=== PATIENT | male | born 1980 | race Hispanic/Latino ===

== ENCOUNTER 2018-03-29 17:48 | Emergency (ER) | payer BC, SELFPAY ==
[2018-03-29 17:51] VITALS: BP 141/83; PULSE 50; RESP 17; TEMP 37.4; O2SAT 99; BMI 26.6
--- NOTE | 2018-03-29 18:24 | EKG12_ITS ---
Test Reason : IRREGULAR HEARTBEAT Blood Pressure : / mmHG Vent. Rate : 102 BPM Atrial Rate : 102 BPM P-R Int : 130 ms QRS Dur : 100 ms QT Int : 366 ms P-R-T Axes : 062 022 072 degrees QTc Int : 477 ms Sinus tachycardia with frequent Premature ventricular complexes Otherwise normal ECG Confirmed by PATRICK KOWALSKI, EDIS ([id number]), film and video editor ALFRED REHMAN ([id number] on 04/01/2018 3:16:03 PM Referred By: Confirmed By:EDIS NGUYEN MD
--- NOTE | 2018-03-29 18:26 | RAD_ITS ---
STUDY: X-RAY CHEST REASON FOR EXAM: Male, 37 years old. Palpitations TECHNIQUE: Single AP portable view of the chest. COMPARISON: None. FINDINGS: The lungs are clear and expanded. There is no demonstrated pleural abnormality. Normal size heart. Normal mediastinum and raegan. Normal visualized pulmonary arteries. Normal visualized aortic arch and descending thoracic aorta. Normal visualized thoracic spine. Normal visualized ribs, clavicles, and shoulders. There is no demonstrated abnormality of the visualized soft tissue structures of the upper abdomen. RAD/Chest 1 View (Portable) IMPRESSION: Normal x-ray examination of the chest. Electronically Signed: Matthew Diaz DO at 18:37 EDT Tel , Service support ,
--- NOTE | 2018-03-29 18:30 | ED.VISSUMM ---
- ER Visit Summary Date of Service: 03/29/18 Chief Complaint: Irregular heartbeat History of Present Illness: The patient is a 37 M presenting from [facility] due to irregular heartbeat. Patient went to [facility] because he has had a sore throat since Sunday. He was tested for strep which was positive. He is given prescription for amoxicillin. He was noted to have an irregular heartbeat on exam. Patient denies palpitations, chest pain, shortness of breath. He denies lightheadedness or syncope. Denies other complaints. Physical Examination: Vitals are stable. Patient is afebrile. Alert no acute distress. HEENT exam pharyngeal erythema, uvula midline. Neck is supple. Lungs are clear and equal bilaterally. Heart is regular rate and rhythm. Abdomen is soft nontender nondistended. Extremities are unremarkable. Skin is warm and dry. No focal neurologic deficit. Remainder of exam is unremarkable. Emergency Department Course and Treatment: EKG is sinus with frequent PVCs, occasional runs of bigeminy. CBC, chemistries unremarkable. Magnesium 1.8, TSH 1.86. Troponin is negative. Chest x-ray shows no acute process. Patient remains asymptomatic in the ED. Discussed with Dr. Hopkins. Patient will follow-up as an outpatient. Advised return to ED for worsening complaints. Disposition: Discharge home Impression: Strep pharyngitis, frequent PVCs This note was generated with [employer] dictation software. It may contain incorrect words, spelling, and punctuation that were not noted in review of the chart prior to signing ED Disposition - Plan for ED Patient: Chief Complaint: Palpitations Instructions: Premature Ventricular Contractions Referrals: Thiago Faustin MD [Primary Care Provider] - Chriss Hopkins MD [STAFF PHYSICIAN] -
--- NOTE | 2018-03-29 18:33 | ED.DCSUM_ITS ---
- ER Visit Summary Date of Service: 03/29/18 Chief Complaint: Irregular heartbeat History of Present Illness: The patient is a 37 M presenting from [facility] due to irregular heartbeat. Patient went to [facility] because he has had a sore throat since Sunday. He was tested for strep which was positive. He is given prescription for amoxicillin. He was noted to have an irregular heartbeat on exam. Patient denies palpitations, chest pain, shortness of breath. He denies lightheadedness or syncope. Denies other complaints. Physical Examination: Vitals are stable. Patient is afebrile. Alert no acute distress. HEENT exam pharyngeal erythema, uvula midline. Neck is supple. Lungs are clear and equal bilaterally. Heart is regular rate and rhythm. Abdomen is soft nontender nondistended. Extremities are unremarkable. Skin is warm and dry. No focal neurologic deficit. Remainder of exam is unremarkable. Emergency Department Course and Treatment: EKG is sinus with frequent PVCs, occasional runs of bigeminy. CBC, chemistries unremarkable. Magnesium 1.8, TSH 1.86. Troponin is negative. Chest x-ray shows no acute process. Patient remains asymptomatic in the ED. Discussed with Dr. Hopkins. Patient will follow- up as an outpatient. Advised return to ED for worsening complaints. Disposition: Discharge home Impression: Strep pharyngitis, frequent PVCs This note was generated with [employer] dictation software. It may contain incorrect words, spelling, and punctuation that were not noted in review of the chart prior to signing ED Disposition - Plan for ED Patient: Chief Complaint: Palpitations Instructions: Premature Ventricular Contractions Referrals: Thiago Faustin MD [Primary Care Provider] - Chriss Hopkins MD [STAFF PHYSICIAN] -
[2018-03-29] MEDS: Aspirin 81 MG TAB.CHEW 324 MG PO (18:37)
[2018-03-29 18:48] LABS: Absolute Lymphocyte Count 1.09 X10^3/ul (0.83-4.51); Absolute Neutrophil Count 4.8 X10^3/uL (2.0-7.7); Basophil# 0.02 X10^3/uL; Basophil% 0.3 % (0-1); Eosinophil# 0.07 X10^3/uL; Eosinophils% 1.1 % (0-5); Hematocrit 41.4 % (40-54); Hemoglobin 13.7 g/dl (13.0-16.5); Lymphocyte # 1.09 X10^3/ul (4.0); Mean Corp Hgb Conc 33.1 g/gl (32-36); Mean Corpuscular Hgb 27.8 pg (27.0-32.0); Mean Corpuscular Volume 84.1 fL (80-94); Mean Platelet Vol. 11.6 fl (6.2-12.0); Monocyte# 0.41 X10^3/uL; Monocyte% 6.4 % (0-10); Neutrophil # 4.82 X10^3/uL (2.7-7.7); Neutrophil % 75.2 % (47-70); POSITIVE COUNT NO; POSITIVE DIFFERENTIAL NO; POSITIVE MORPHOLOGY NO; Platelet Count 160 K/mm3 (150-450); RBC Distribution Width CV 12.8 % (11.6-14.6); RBC Distribution Width SD 38.9 fl (35.1-43.9); Red Blood Count 4.92 M/mm3 (4.6-6.2); White Blood Count 6.4 K/mm3 (4.4-11.0)
[2018-03-29 19:10] LABS: Anion Gap 5 (5-15); BUN 19 mg/dL (7-18); BUN/Creat Ratio 17.4 RATIO (10-20); Calcium,Total 8.4 mg/dL (8.5-10.1); Chloride 110 mmol/L (98-107); Creatinine, Serum 1.09 mg/dL (0.70-1.30); EST Glomerular Filtration Rate 80 mL/min (>60); Est Glom Filt Rate - Afr Amer 97 mL/min (>60); Estimated Creatinine Clearance 97.87 ml/min; Glucose 85 mg/dL (74-106); Magnesium 1.8 mg/dL (1.6-2.6); Potassium 4.4 mmol/L (3.5-5.1); Sodium Level 142 mmol/L (136-145); Thyroid Stim Hormone (TSH) 1.86 uIU/mL (0.358-3.74)
--- NOTE | 2018-03-29 19:28 | ED.DEP ---
ED Disposition - Plan for ED Patient: Chief Complaint: Palpitations Instructions: Premature Ventricular Contractions Referrals: Thiago Faustin MD [Primary Care Provider] - Chriss Hopkins MD [STAFF PHYSICIAN] -
[2018-03-29 19:40] VITALS: PULSE 101; RESP 18; O2SAT 98
== END 2018-03-29 19:41 | disposition home or self-care (01) ==
LOC: ED 18:58
PROVIDERS: Emergency Provider Emergency Medicine; Family Provider Family Medicine; PCP Family Medicine
DX: I49.3 Ventricular premature depolarization (principal); J02.0 Streptococcal pharyngitis
CPT/HCPCS: 71045; 80048; 83735; 84443; 84484; 85025; 93005; 99285; A4216

== ENCOUNTER 2018-04-18 20:40 | Emergency (ER) | payer BC, SELFPAY ==
[2018-04-17 15:14] VITALS: BMI 26.4
[2018-04-18 20:42] VITALS: BP 151/74; PULSE 88; RESP 20; TEMP 37.4; O2SAT 98; BMI 26.6
--- NOTE | 2018-04-18 22:32 | ED.VISSUMM ---
- ER Visit Summary Date of Service: 04/18/18 Chief Complaint: Patient presents with sore throat that started yesterday History of Present Illness: The patient is a 37 M who presents with sore throat that started yesterday. He denies fever, chills or sweats. He denies rhinorrhea, postnasal drainage or cough. He was diagnosed 3 weeks ago with strep. He denies change in his voice. Eyes inability to swallow solids or liquids. He denies any respiratory symptoms. He denies rash. Denies myalgias arthralgias. Physical Examination: Vital signs are noted. HEENT exam is remarkable for exudative tonsillitis. Uvula is midline. Nares patent without discharge. TMs are normal. Ocular exam is normal. Trach is midline without stridor. There is bilateral anterior cervical lymphadenopathy. Heart is regular without murmur, gallop or rub. Lungs are clear to auscultation. No rashes noted. Test Results: Rapid strep test is positive. Emergency Department Course and Treatment: Rapid strep was positive. Since rapid strep was positive treated with Pen-Vee K Treatment Plan: Prescription for Pen-Vee K Disposition: Discharged home in stable condition Impression: Exudative tonsillitis This note was generated with [employer] dictation software. It may contain incorrect words, spelling, and punctuation that were not noted in review of the chart prior to signing ED Disposition - Plan for ED Patient: Disposition: Home or Assisted Living Chief Complaint: Sore Throat Instructions: ED Strep Pharyngitis Conf Prescriptions: Penicillin V Potassium 500 mg PO 4X/DAY #40 tablet Referrals: Thiago Faustin MD [Primary Care Provider] - 1 Week if not improving Additional Instructions: Your prescription was electronically transmitted to [facility] and should be ready for you tomorrow morning.
--- NOTE | 2018-04-18 22:35 | ED.DCSUM_ITS ---
- ER Visit Summary Date of Service: 04/18/18 Chief Complaint: Patient presents with sore throat that started yesterday History of Present Illness: The patient is a 37 M who presents with sore throat that started yesterday. He denies fever, chills or sweats. He denies rhinorrhea, postnasal drainage or cough. He was diagnosed 3 weeks ago with strep. He denies change in his voice. Eyes inability to swallow solids or liquids. He denies any respiratory symptoms. He denies rash. Denies myalgias arthralgias. Physical Examination: Vital signs are noted. HEENT exam is remarkable for exudative tonsillitis. Uvula is midline. Nares patent without discharge. TMs are normal. Ocular exam is normal. Trach is midline without stridor. There is bilateral anterior cervical lymphadenopathy. Heart is regular without murmur, gallop or rub. Lungs are clear to auscultation. No rashes noted. Test Results: Rapid strep test is positive. Emergency Department Course and Treatment: Rapid strep was positive. Since rapi d strep was positive treated with Pen-Vee K Treatment Plan: Prescription for Pen-Vee K Disposition: Discharged home in stable condition Impression: Exudative tonsillitis This note was generated with [employer] dictation software. It may contain incorrect words, spelling, and punctuation that were not noted in review of the chart prio r to signing ED Disposition - Plan for ED Patient: Disposition: Home or Assisted Living Chief Complaint: Sore Throat Instructions: ED Strep Pharyngitis Conf Prescriptions: Penicillin V Potassium 500 mg PO 4X/DAY #40 tablet Referrals: Thiago Faustin MD [Primary Care Provider] - 1 Week if not improving Additional Instructions: Your prescription was electronically transmitted to [facility] and should be ready for you tomorrow morning.
[2018-04-18] MEDS: Penicillin Vk 250 MG Tablet 500 MG PO (22:42)
== END 2018-04-18 22:45 | disposition home or self-care (01) ==
PROVIDERS: Emergency Provider Emergency Medicine; Family Provider Family Medicine; PCP Family Medicine
DX: J03.90 Acute tonsillitis, unspecified (principal)
CPT/HCPCS: 87880; 99283

== ENCOUNTER → 2018-04-26 12:59 | Outpatient (CLI) | payer BC, SELFPAY ==
[2018-04-17 15:14] VITALS: BMI 26.4
[2018-04-18 20:42] VITALS: BMI 26.6
--- NOTE | 2018-04-26 13:02 | ECHOD_ITS ---
Reason For Study: Arrhythmia Procedure This was a 2D Doppler, Color Flow transthoracic echocardiogram. Exam performed in department. Left Ventricle Normal LV size. Left ventricular systolic function is normal. The estimated ejection fraction is 55 %. Normal diastology for age. No regional wall motion abnormalities noted. Right Ventricle Normal RV size. Normal systolic function. Atria Normal left atrium. Normal right atrium. Mitral Valve Mild mitral valve prolapse. Tricuspid Valve Normal tricuspid valve. Mild (1+) tricuspid valve insufficiency. Pulmonary artery systolic pressure is 31 mmHg. Aortic Valve Normal aortic valve. Trisinus/trileaflet aortic valve. Pulmonic Valve Normal pulmonic valve. Great Vessels Normal aortic root. The pulmonary artery is normal size. Normal inferior vena cava. Pericardium/Pleural No pericardial effusion. MMode/2D Measurements & Calculations LVIDd: 5.0 cm IVSd: 0.97 cm LA dimension: 3.4 cm LVIDs: 2.8 cm LVPWd: 0.82 cm RVDd: 3.6 cm FS: 43.4 % LAV(MOD-bp): 30.0 ml LVAd ap4: 29.0 cm2 SV(MOD-sp4): 57.4 ml LAV(MOD-bp) Indexed: 14.7 ml/m2 EDV(MOD-sp4): 80.3 ml LAV(MOD-sp2): 31.7 ml EDV(sp4-el): 80.9 ml LAV(MOD-sp4): 26.2 ml LVAs ap4: 13.3 cm2 ESV(MOD-sp4): 22.9 ml ESV(sp4-el): 22.4 ml EF(MOD-sp4): 71.5 % EF(sp4-el): 72.3 % SV(sp4-el): 58.5 ml LA A4 area: 12.9 cm2 RA A4 area: 14.2 cm2 Doppler Measurements & Calculations MV E max santiago: 81.9 cm/sec Lat Peak E' Santiago: 14.1 cm/sec Med Peak E' Santiago: 8.8 cm/sec MV A max santiago: 60.5 cm/sec E/E' lat: 5.8 E/E' med: 9.3 MV E/A: 1.4 Ao V2 max: 160.7 cm/sec LV V1 max: 157.0 cm/sec PA V2 max: 113.6 cm/sec Ao max P.3 mmHg LV V1 max P.9 mmHg Ao V2 mean: 105.4 cm/sec Ao mean P.1 mmHg Ao V2 VTI: 28.9 cm TR max santiago: 259.4 cm/sec TR max P.9 mmHg Interpretation Summary Normal LV size. Left ventricular systolic function is normal. The estimated ejection fraction is 55 %. Normal diastology for age. Mild mitral valve prolapse. Mild (1+) tricuspid valve insufficiency. Ordering Physician: Chriss Hopkins Referring Physician: Manpreet Faustin Performed By: Constance Shipman, ORD, RVT
--- OUTSIDE RECORDS SUMMARY | 2018-06-21 11:56 | XMS RPT_ITS ---
:1980 Author Organization OHIP Care Team Providers Name Role Phone MIGUELINA GARDINER (HARVEY) Attending Unavailable MIGUELINA GARDINER (HARVEY) Referring Unavailable Jenny Jordan Attending Unavailable Bursley, Thiago Primary Care Unavailable Deb Chun Attending Unavailable Kellie, [place] Attending Unavailable Bursley, Thiago Referring Unavailable Bursley, Thiago Primary Care Unavailable Paz, Celso Attending Unavailable Kellie, [place] Attending Unavailable Kellie, [place] Referring Unavailable Bursley, Thiago Primary Care Unavailable Kellie, [place] Attending Unavailable Kellie, Chriss Referring Unavailable Bursley, Thiago Primary Care Unavailable Kellie, Chriss Consulting Unavailable Johnnie Shipman Attending Unavailable Bursley, Thiago Referring Unavailable PROBLEMS PROBLEMS DATE TYPE CONDITION / CODE ATTENDING STATUS SOURCE 05/01/2018 Unknown I49.3 - Ventricular RoofJohnnie Active [facility] I49.3(ICD-10) Repository 04/13/2018 Active Encounter for NA Active [facility] without abnormal Repository findings / Z00.00(ICD-10) PROCEDURES PROCEDURES No Procedure Records FoundRESULTS RESULTS ECHOCARDIOGRAM COMPLETE Observed: 04/29/2018 Status: F Source: [place] 7:56 AM [facility] REPOSITORY [facility] Cardiovascular Services [address] [place] [address] Echo Complete 04/26/18 1308 MR#: [id number] Acct: [id number] Name: MARISOL NEVAREZ Rep #: [id number] : 1980 37 From: Chriss Hopkins MD Attending Dr: Chriss Hopkins MD Status: REG CLI Ordering Dr: Chriss Hopkins MD Date: 04/26/18 Location: [facility] Sex: M H Admitted: Reason For Study: Arrhythmia Procedure This was a 2D Doppler, Color Flow transthoracic echocardiogram. Exam performed in department. Left Ventricle Normal LV size. Left ventricular systolic function is normal. The estimated ejection fraction is 55 %. Normal diastology for age. No regional wall motion abnormalities noted. Right Ventricle Normal RV size. Normal systolic function. Atria Normal left atrium. Normal right atrium. Mitral Valve Mild mitral valve prolapse. Tricuspid Valve Normal tricuspid valve. Mild (1+) tricuspid valve insufficiency. Pulmonary artery systolic pressure is 31 mmHg. Aortic Valve Normal aortic valve. Trisinus/trileaflet aortic valve. Pulmonic Valve Normal pulmonic valve. Great Vessels Normal aortic root. The pulmonary artery is normal size. Normal inferior vena cava. Pericardium/Pleural No pericardial effusion. MMode/2D Measurements AND Calculations LVIDd: 5.0 cm IVSd: 0.97 cm LA dimension: 3.4 cm LVIDs: 2.8 cm LVPWd: 0.82 cm RVDd: 3.6 cm FS: 43.4 % LAV(MOD-bp): 30.0 ml LVAd ap4: 29.0 cm2 SV(MOD-sp4): 57.4 ml LAV(MOD-bp) Indexed: 14.7 ml/m2 EDV(MOD-sp4): 80.3 ml LAV(MOD-sp2): 31.7 ml EDV(sp4-el): 80.9 ml LAV(MOD-sp4): 26.2 ml LVAs ap4: 13.3 cm2 ESV(MOD-sp4): 22.9 ml ESV(sp4-el): 22.4 ml EF(MOD-sp4): 71.5 % EF(sp4-el): 72.3 % SV(sp4-el): 58.5 ml LA A4 area: 12.9 cm2 RA A4 area: 14.2 cm2 Doppler Measurements AND Calculations MV E max santiago: 81.9 cm/sec Lat Peak E' Santiago: 14.1 cm/sec Med Peak E' Santiago: 8.8 cm/sec MV A max santiago: 60.5 cm/sec E/E' lat: 5.8 E/E' med: 9.3 MV E/A: 1.4 Ao V2 max: 160.7 cm/sec LV V1 max: 157.0 cm/sec PA V2 max: 113.6 cm/sec Ao max P.3 mmHg LV V1 max P.9 mmHg Ao V2 mean: 105.4 cm/sec Ao mean P.1 mmHg Ao V2 VTI: 28.9 cm TR max santiago: 259.4 cm/sec TR max P.9 mmHg Interpretation Summary Normal LV size. Left ventricular systolic function is normal. The estimated ejection fraction is 55 %. Normal diastology for age. Mild mitral valve prolapse. Mild (1+) tricuspid valve insufficiency. Ordering Physician: Chriss Hopkins Referring Physician: Manpreet Faustin Performed By: Rosemary Shipman RDCS, RVT 04/29/18 0756 Date Chriss Hopkins MD CC: Thiago Faustin MD; Chriss Hopkins MD Date Dictated: 04/26/18 1308 Date Transcribed: 04/29/18 0756 Card Fixer: Signed EMERGENCY DEPARTMENT Observed: 04/18/2018 Status: F Source: [place] SUMMARY 10:35 PM [facility] REPOSITORY [facility] Medical Records Department [address] [place] [address] Emergency Department Summary 04/18/18 2232 MR#: [id number] Acct: [id number] Name: MARISOL NEVAREZ Rep #: [id number] : 1980 37 From: Celso Paz MD PCP: Thiago Faustin MD Status: REG ER - ER Visit Summary Date of Service: 04/18/18 Chief Complaint: Patient presents with sore throat that started yesterday History of Present Illness: The patient is a 37 M who presents with sore throat that started yesterday. He denies fever, chills or sweats. He denies rhinorrhea, postnasal drainage or cough. He was diagnosed 3 weeks ago with strep. He denies change in his voice. Eyes inability to swallow solids or liquids. He denies any respiratory symptoms. He denies rash. Denies myalgias arthralgias. Physical Examination: Vital signs are noted. HEENT exam is remarkable for exudative tonsillitis. Uvula is midline. Nares patent without discharge. TMs are normal. Ocular exam is normal. Trach is midline without stridor. There is bilateral anterior cervical lymphadenopathy. Heart is regular without murmur, gallop or rub. Lungs are clear to auscultation. No rashes noted. Test Results: Rapid strep test is positive. Emergency Department Course and Treatment: Rapid strep was positive. Since rapid strep was positive treated with Pen-Vee K Treatment Plan: Prescription for Pen-Vee K Disposition: Discharged home in stable condition Impression: Exudative tonsillitis This note was generated with Ripl dictation software. It may contain incorrect words, spelling, and punctuation that were not noted in review of the chart prior to signing ED Disposition - Plan for ED Patient: Disposition: Home or Assisted Living Chief Complaint: Sore Throat Instructions: ED Strep Pharyngitis Conf Prescriptions: Penicillin V Potassium 500 mg PO 4X/DAY #40 tablet Referrals: Thiago Faustin MD [Primary Care Provider] - 1 Week if not improving Additional Instructions: Your prescription was electronically transmitted to [facility] and should be ready for you tomorrow morning. What to do if you have Problems For any increased pain, shortness of breath, bleeding, nausea or vomiting, chest pain, or any unexpected problems, contact your Primary Care Provider. Call [facility] ([phone]) or report to the closest Emergency Room. Call 911 if necessary. 04/18/184 <Electronically signed by Celso Paz MD> Date Celso Paz MD Cosigner Signature (If Indicated): Date CC: Thiago Faustin MD Observed: 04/18/2018 Status: C Source: [place] STREP A (THROAT 9:59 PM [facility] RAPID ARELI) REPOSITORY Order Date: 04/18/18 Strep A Rapid Rapid Strep A Screen POSITIVE A Disk (Conf. Cult) Test Not Performed : All NEGATIVE screens will be confirmed with a culture. ORGANISM 1: Streptococcus Group A Performed By: #### [id number] #### [facility] [address] [place], [place], [address] CARDIOLOGY VISIT Observed: 04/17/2018 Status: F Source: [place] REPORT 3:42 PM [facility] REPOSITORY [facility] [address] [place] [address] OFFICE VISIT Date of Service: 04/17/18 MR#: [id number] Acct: [id number] Name: MARISOL NEVAREZ Rep #: [id number] : 1980 Provider: Chriss Hopkins MD Age/Sex: 37/M Location: [facility] Status: Signed [facility] Chief Complaint: Initial visit Details: MARISOL NEVAREZ, is a 37 M who presents to the office today for an initial visit. He developed a sore throat approximately 3 weeks ago and went to the outpatient clinic. He was noted on examination at that time to have an irregular heartbeat and was sent to the emergency room. He was evaluated in the emergency room with an EKG which demonstrated sinus tachycardia with a rate of 102 bpm and frequent premature ventricular complexes. He does confess to drinking a fair amount of coffee and some beer. He has had no dizziness or diaphoresis no near syncope or syncope he does not feel these episodes. His chemistries were unremarkable magnesium was 1.8 TSH was normal. He was referred here to cardiology. His physical exam today demonstrates clear lung leos regular rate and rhythm with frequent irregularities and no pedal edema. The EKG was reviewed and it does demonstrate frequent unifocal premature ventricular complexes which are positive in leads II, III and aVF as well as V5 V6 Intake Vital Signs04/17/18 Height 5 ft 11 in Intake Visit Reasons: ER 11-2 for murmur (NEW to [facility]/[employer] SHE[employer]) Allergies No Known Allergies Allergy (Verified 04/17/18 15:14) Medications NK 03/29/18 [History Confirmed 03/29/18] PFSH Family History Father Myocardial infarction MD age 70 CAD (coronary artery disease) Hypertension Other Malignant hyperthermia due to anesthesia Social History Smoking Status: Never smoker alcohol intake: current alcohol intake frequency: other Alcohol type: beer ROS Const Const: Negative for fatigue, weakness, difficulty sleeping, frequent falls, excessive sweating or headache(s) Eyes Eyes: Negative for loss of peripheral vision, transient loss of vision, blurry vision, tunnel vision or double vision ENT ENT: Negative for headache(s), dizziness, Nosebleed/epistaxis or balance problems Cardio Chest Pain: No Palpitations: No Edema: None Muscle aches with walking: None Resp Respiratory: Negative for SOB with activity, SOB at rest, SOB orthopnea\SOB lying down, paroxysmal nocturnal dyspnea or Cough GI GI: Negative nausea, heartburn, black,tarry stools or vomiting : Negative for hematuria Musc Musc: Negative for balance problems, muscle aches/ myalgia, muscle weakness or joint pain Skin Skin: Negative non-healing lesions, unusual bruising or rash Neuro Neuro: Negative for weakness, frequent falls, headache(s), blurry vision, double vision, dizziness, lightheadedness, orthostatic symptoms, near syncope, syncope or lack of coordination Carter Hematologic/Lymphatic: Negative for easy bruising or easy bleeding Endo Endo: Negative for fatigue, excessive sweating or increased thirst/drinking Psych Psych: Negative for anxiety or depression Allergy Allergy/Immunology: Negative for hives, Negative for rash Cardiology Exam Const Appearance: cooperative, healthy appearing, well developed, well groomed and no acute distress Nutritional Appearance: well nourished and average body habitus Orientation: alert, awake and oriented x3 Head Head: normal to inspection, normocephalic and atraumatic Ears: hearing grossly normal bilaterally and external ears normal Nose: external nose normal, nasal mucous membranes and turbinates normal, nares normal, septum normal, no nasal discharge Face and Sinus: face symmetric Mouth: oral mucosae normal, tongue normal, oropharynx normal and moist mucous membranes Teeth and gingiva: dentition normal Throat: posterior oropharynx normal, tonsils normal and uvula midline Eyes General: appearance normal, both eyes and all related structures Eyelids: eyelids normal Conjunctivae: conjunctivae normal Pupils: PERRL, normal by confrontation and accommodation normal EOM: EOM intact bilaterally Neck Neck: normal visual inspection, trachea midline and no JVD JVD: +5 Carotids: normal carotid upstroke and bounding pulses Chest Chest inspection: normal inspection of the chest, symmetric chest movement and normal respiratory effort Auscultation: Bilateral: Clear to Auscultation Cardio Palpation: normal PMI Rate: regular rate Rhythm: regular rhythm and ectopic beats Heart sounds: S1 normal and S2 normal GI GI: normal to inspection, soft, no hepatosplenomegaly and bowel sounds present Neuro General: alert, awake, oriented x3, no focal sensory deficit, gait normal and moves all extremities Skin Skin: no rashes or lesions noted Extremities Pulses: Normal: Right Femoral Pulse, Left Femoral Pulse, Right Dorsalis Pedis Pulse, Left Dorsalis Pedis Pulse, Right Posterior Tibial Pulse, Left Posterior Tibial Pulse, Right Radial Pulse, Left Radial Pulse Lower Extremity Edema: None: Bilateral Musculoskel Musculoskeletal: No joint tenderness Psych Psychological: normal affect Assessment AND Plan Problems 1. Premature ventricular beats I49.3 Plan Frequent unifocal premature ventricular complexes. The etiology of the above is not entirely clear I would recommend that we obtain an echocardiogram to assess the left ventricular function as well as a 24-hour Holter monitor to quantify the above. I would not start him on a medication at this particular time. Depending on the findings further recommendations will then be made. Thank you for allowing me to participate in the care of your patient. Please don't hesitate to call if any issues arise Orders Orders: Plan Detail Follow Up 2 Weeks (negritor) Coding Level of Care Code Off vis,new,level 4 Diagnoses Premature ventricular beats I49.3 Coding Level of Care Code Off vis,new,level 4 Diagnoses Premature ventricular beats I49.3 04/17/18 1542 <Electronically signed by Chriss Hopkins MD> Date Chriss Hopkins MD Cosigner Signature: Date (if applicable) CC: Thiago Faustin MD CNOV Observed: 04/13/2018 Status: COMPLETED Source: [place] 8:45 AM [facility] REPOSITORY Office Visit ([facility]) MARISOL NEVAREZ ([id number]) 1980 [facility] Date Time Provider Department 04/13/18 8:45 AM [facility] During your visit today, we recorded the following information about you: Rosemary Snyder Ma 04/13/2018 11:55 AM Signed 37 year old male here for INACTIVATED INFLUENZA VACCINE. 6442-7090 Season Patient is identified by name and date of : Yes [] CONTRAINDICATIONS color enhanced section Age less than 6 months? No Allergy to eggs, chicken, chicken feathers, or chicken dander? No Allergy to thimerosal (a preservative) or formaldehyde, gelatin? No History of severe reaction to any vaccine component or a previous dose of influenza vaccination? No History of Guillain-Columbus Syndrome within 6 weeks after a previous influenza vaccine? No Patient is not moderately or severely ill? No Current temperature greater or equal to 100.4F? No History of Bone Marrow Transplant prior 6 months or solid organ transplant in the past 3 months ? No History of fainting after a prior injection or medical procedure? No- ? If patient has fainted in the past, the CDC recommends sitting or lying down for 15 minutes after the vaccination. [] VERIFICATION color enhanced section Was the answer Yes for any of the above contraindications? No contraindications present. Acceptable to proceed with vaccine. Patient/guardian agrees the above answers are true to the best of their knowledge? Yes Flu vaccine information sheet given? Yes See immunization activity in [facility] for details of immunizations adminstered today. Patient age: [age] year old For The 9720-6768 Flu Season 6-35 months old: Fluzone 0.25 ml - IM (Preservative Free) 3 years of age: Fluzone 0.5 ml - IM (Preservative Free) 3 years and older: Fluzone 0.5 ml- IM-(with Preservatives) 65+ years old: 2-49 years old Fluzone High-Dose 0.5 ml - IM (Preservative Free) FLUMIST- intranasal REMEMBER: If patient is less than 9 years of age and this is the first vaccine of Influenza to be received in any flu season, they should receive a second dose in one months time. Referring Provider: SELF [200] Allergies As of Date: 04/13/2018 (No Known Allergies) Date Reviewed: 03/26/2018 Reviewed by: Miguelina ([facility]) Podlogar - Fully Assessed Reason for Visit: Imm/Inj [58] Cmt: Flu Vaccine Primary Visit Diagnosis:Need for vaccination [Z23] Order(s):INFLUENZA VACCINE QUADRIVALENT AGE 3 YRS PLUS + IM [[id number]] Order #: [id number] Problem List As Of Date: 04/13/2018 (None) Encounter Status:Closed by ROSEMARY SNYDER MA on 04/13/18 PROGRESS Observed: 04/13/2018 Status: COMPLETED Source: [place] 8:43 AM [facility] [place] REPOSITORY O ID: [id number] Author: Rosemary Snyder Ma Service: (none) Author Type: (none) Type: Progress Notes Filed: 04/13/2018 11:55 AM Note Text: 37 year old male here for INACTIVATED INFLUENZA VACCINE. 4917-0855 Season Patient is identified by name and date of : Yes [] CONTRAINDICATIONS color enhanced section Age less than 6 months? No Allergy to eggs, chicken, chicken feathers, or chicken dander? No Allergy to thimerosal (a preservative) or formaldehyde, gelatin? No History of severe reaction to any vaccine component or a previous dose of influenza vaccination? No History of Guillain-Columbus Syndrome within 6 weeks after a previous influenza vaccine? No Patient is not moderately or severely ill? No Current temperature greater or equal to 100.4F? No History of Bone Marrow Transplant prior 6 months or solid organ transplant in the past 3 months ? No History of fainting after a prior injection or medical procedure? No- ? If patient has fainted in the past, the CDC recommends sitting or lying down for 15 minutes after the vaccination. [] VERIFICATION color enhanced section Was the answer Yes for any of the above contraindications? No contraindications present. Acceptable to proceed with vaccine. Patient/guardian agrees the above answers are true to the best of their knowledge? Yes Flu vaccine information sheet given? Yes See immunization activity in [facility] for details of immunizations adminstered today. Patient age: [age] year old For The 1682-8473 Flu Season 6-35 months old: Fluzone 0.25 ml - IM (Preservative Free) 3 years of age: Fluzone 0.5 ml - IM (Preservative Free) 3 years and older: Fluzone 0.5 ml- IM-(with Preservatives) 65+ years old: 2-49 years old Fluzone High-Dose 0.5 ml - IM (Preservative Free) FLUMIST- intranasal REMEMBER: If patient is less than 9 years of age and this is the first vaccine of Influenza to be received in any flu season, they should receive a second dose in one months time. CBC AND DIFFERENTIAL Collected: 04/13/2018 Status: F Source: [place] 8:32 AM [facility] REPOSITORY TYPE CODE TESTS RESULT OUT OF REFERENCE UNITS RANGE LAB WBC 3.70-11.00 k/uL WBC 8.99 LAB RBC 4.20-6.00 m/uL RBC 5.23 LAB HGB 13.0-17.0 g/dL Hemoglobin 14.5 LAB HCT 39.0-51.0 % Hematocrit 44.5 LAB MCV 80.0-100.0 fL MCV 85.1 LAB MCH 26.0-34.0 pG MCH 27.7 LAB MCHC 30.5-36.0 g/dL MCHC 32.6 LAB RDWCV 11.5-15.0 % RDW-CV 12.6 LAB PLTCT 150-400 k/uL Platelet Count 200 LAB MPV 9.0-12.7 fL MPV 12.5 LAB ANEUT % Neut% 78.4 LAB AANEUT 1.45-7.50 k/uL Abs Neut 7.04 LAB ALYMP % Lymph% 16.0 LAB AALYMP 1.00-4.00 k/uL Abs Lymph 1.44 LAB AMONO % Tyler% 4.4 LAB AAMONO <0.87 k/uL Abs Tyler 0.40 LAB AEOS % Eosin% 0.8 LAB AAEOS <0.46 k/uL Abs Eosin 0.07 LAB ABASO % Baso% 0.4 LAB AABASO <0.11 k/uL Abs Baso 0.04 LAB AUNRBC 0 /100 WBC NRBCs 0.0 LAB ABNRBC <0.01 k/uL Absolute nRBC <0.01 LAB DTYP DTYPE Auto Diff Performed By: #### CBCDIF, CMP, LIPB #### [facility] [address] [place], [place] [address] COMP METABOLIC PANEL Collected: 04/13/2018 Status: F Source: [place] 8:32 AM [facility] REPOSITORY TYPE CODE TESTS RESULT OUT OF REFERENCE UNITS RANGE LAB TP 6.3-8.0 g/dL Protein, Total 6.9 LAB ALB 3.9-4.9 g/dL Albumin 4.6 LAB CA 8.5-10.2 mg/dL Calcium, Total 9.4 LAB TBIL 0.2-1.3 mg/dL Bilirubin, Total 0.6 LAB ALKP 38-113 U/L Alkaline Phosphatase 57 LAB AST 14-40 U/L AST 25 LAB GLU 74-99 mg/dL Glucose 91 Result Comment: The [place] Diabetes Association (ADA) provides guidance for cutoff values for fasting glucose and random glucose. The ADA defines fasting as no caloric intake for at least 8 hours. Fas ting plasma glucose results between 100 to 125 mg/dL indicate increased risk for diabetes (prediabetes). Fasting plasma glucose results greater than or equal to 126 mg/dL meet the criteria for diagnosis of diabetes. In the absence of unequivocal hyperglycemia, results should be confirmed by repeat testing. In a patient with classic symptoms of hyperglycemia or hyperglycemic crisis, random plasma glucose results greater than or equal to 200 mg/dL meet the criteria for diagnosis of diabetes. Reference: Standards of Medical Care in Diabetes 2016, [place] Diabetes Association. Diabetes Care. 2016.39(Suppl 1). LAB BUN 9-24 mg/dL BUN 16 LAB CRET 0.73-1.22 mg/dL Creatinine 1.21 LAB NA 136-144 mmol/L Sodium 144 LAB K 3.7-5.1 mmol/L Potassium 5.0 LAB CL 97-105 mmol/L Chloride 104 LAB CO2 22-30 mmol/L CO2 26 LAB AGAP 9-18 mmol/L Anion Gap 14 LAB ALT 10-54 U/L ALT 27 LAB GFRAA eGFR- Amer. >60 LAB GFRNAA . eGFR-All Other Races >60 Result Comment: eGFR (Estimated GFR) Units of measure: mL/min/1.73 meters squared eGFR is derived from the reexpressed MDRD Study equation using the following parameters: serum creatinine, age, gender and race. The creatinine assay has been calibrated to be traceable to IDMS. An eGFR <60 mL/min/1.73m2 for >3 months is consistent with chronic kidney disease. Refer to KDOQI guidelines for clinical interpretation. In patients with unstable renal function, e.g. those with acute kidney injury, the eGFR may not accurately reflect actual GFR. Performed By: #### CBCDIF, CMP, LIPB #### [facility] [address] [address] LIPID PANEL, BASIC Collected: 04/13/2018 Status: F Source: [place] 8:32 AM [facility] REPOSITORY TYPE CODE TESTS RESULT OUT OF REFERENCE UNITS RANGE LAB CHOL <200 mg/dL Cholesterol 140 Result Comment: <200 mg/dL, Desirable 200-239 mg/dL, Borderline high >239 mg/dL, High LAB TRIGLY <150 mg/dL Triglyceride 72 Result Comment: <150 mg/dL, Normal 150-199 mg/dL, Borderline high 200-499 mg/dL, High >499 mg/dL, Very high LAB HDL >39 mg/dL HDL-Cholesterol Low 34 Result Comment: 40-59 mg/dL, Acceptable >59 mg/dL, High: Negative risk factor for coronary heart disease <40 mg/dL, Low: Positive risk factor for coronary heart disease LAB LDL <100 mg/dL LDL-Cholesterol 92 Result Comment: <100 mg/dL, Optimal 100-129 mg/dL, Near optimal/above optimal 130-159 mg/dL, Borderline high 160-189 mg/dL, High >189 mg/dL, Very high Secondary prevention optimal LDL Cholesterol levels are recommended to be < 70 mg/dL LAB NONHDL <130 mg/dL Non HDL Cholesterol 106 Result Comment: <130 mg/dL, Optimal 130-159 mg/dL, Near optimal/above optimal 160-189 mg/dL, Borderline high 190-219 mg/dL, High >219 mg/dL, Very high Secondary prevention optimal non HDL Cholesterol levels are recommended to be < 100 mg/dL LAB FT hrs Fasting Time 10 LAB VLDL <30 mg/dL VLDL Cholesterol 14 LAB TCHDL <5.10 TC:HDL Ratio 4.12 LAB LDLHDL <2.54 High LDL:HDL Ratio 2.71 Result Comment: Reference: 1. National Cholesterol Education Program ATP III Guideline At-A-Glance Quick Desk Reference: National Heart, Lung, and Blood [place]. National Institutes of Health. 2001: NIH Publication No. 01-3305. 2. An International Atherosclerosis Society position paper: global recommendations for the management of dyslipidemia: executive summary, Atherosclerosis. 2014: 232(2):410-413. Performed By: #### CBCDIF, CMP, LIPB #### [facility] [address] [place], [place] [address] 12 LEAD ELECTROCARDIOGRAM Observed: 04/01/2018 Status: F Source: [place] 3:16 PM [facility] REPOSITORY [facility] Cardiovascular Services [address] [place] [address] 12 Lead EKG 03/29/18 1818 MR#: [id number] Acct: [id number] Name: MARISOL NEVAREZ Rep #: [id number] : 1980 37 From: Chriss Hopkins MD Attending Dr: Status: DEP ER Ordering Dr: Jenny Jordan MD Date: 03/29/18 Location: ED Sex: M H Admitted: Test Reason : IRREGULAR HEARTBEAT Blood Pressure : / mmHG Vent. Rate : 102 BPM Atrial Rate : 102 BPM P-R Int : 130 ms QRS Dur : 100 ms QT Int : 366 ms P-R-T Axes : 062 022 072 degrees QTc Int : 477 ms Sinus tachycardia with frequent Premature ventricular complexes Otherwise normal ECG Confirmed by CHRISS HOPKINS MD ([id number]), restaurant expeditor ALFRED REHMAN ([id number]) on 04/01/2018 3:16:03 PM Referred By: Confirmed By:CHRISS HOPKINS MD 04/01/18 1516 Date Chriss Hopkins MD CC: Jenny Jordan MD; Thiago Faustin MD Signed EMERGENCY DEPARTMENT Observed: 03/29/2018 Status: F Source: [place] SUMMARY 7:32 PM [facility] REPOSITORY [facility] Medical Records Department [address] [place] [address] Emergency Department Summary 03/29/18 1830 MR#: [id number] Acct: [id number] Name: MARISOL NEVAREZ Rep #: [id number] : 1980 37 From: Jenny Jordan MD PCP: Thiago Faustin MD Status: REG ER - ER Visit Summary Date of Service: 03/29/18 Chief Complaint: Irregular heartbeat History of Present Illness: The patient is a 37 M presenting from [facility] due to irregular heartbeat. Patient went to [facility] because he has had a sore throat since Sunday. He was tested for strep which was positive. He is given prescription for amoxicillin. He was noted to have an irregular heartbeat on exam. Patient denies palpitations, chest pain, shortness of breath. He denies lightheadedness or syncope. Denies other complaints. Physical Examination: Vitals are stable. Patient is afebrile. Alert no acute distress. HEENT exam pharyngeal erythema, uvula midline. Neck is supple. Lungs are clear and equal bilaterally. Heart is regular rate and rhythm. Abdomen is soft nontender nondistended. Extremities are unremarkable. Skin is warm and dry. No focal neurologic deficit. Remainder of exam is unremarkable. Emergency Department Course and Treatment: EKG is sinus with frequent PVCs, occasional runs of bigeminy. CBC, chemistries unremarkable. Magnesium 1.8, TSH 1.86. Troponin is negative. Chest x-ray shows no acute process. Patient remains asymptomatic in the ED. Discussed with Dr. Hopkins. Patient will follow-up as an outpatient. Advised return to ED for worsening complaints. Disposition: Discharge home Impression: Strep pharyngitis, frequent PVCs This note was generated with Ripl dictation software. It may contain incorrect words, spelling, and punctuation that were not noted in review of the chart prior to signing ED Disposition - Plan for ED Patient: Chief Complaint: Palpitations Instructions: Premature Ventricular Contractions Referrals: Thiago Faustin MD [Primary Care Provider] - Chriss Hopkins MD [STAFF PHYSICIAN] - What to do if you have Problems For any increased pain, shortness of breath, bleeding, nausea or vomiting, chest pain, or any unexpected problems, contact your Primary Care Provider. Call [facility] ([phone]) or report to the closest Emergency Room. Call 911 if necessary. 03/29/181931 <Electronically signed by Jenny Jordan MD> Date Jenny Jordan MD Cosigner Signature (If Indicated): Date CC: Thiago Faustin MD DISCHARGE INSTRUCTION Observed: 03/29/2018 Status: F Source: [place] 7:29 PM [facility] REPOSITORY [facility] Medical Records Department [address] [place], [place] [address] [address] Discharge Instruction 03/29/181927 MR#: [id number] Acct: [id number] Name: MARISOL NEVAREZ Rep #: [id number] : 1980 37 From: Jenny Jordan MD PCP: Thiago Faustin MD Status: REG ER ED Disposition - Plan for ED Patient: Chief Complaint: Palpitations Instructions: Premature Ventricular Contractions Referrals: Thiago Faustin MD [Primary Care Provider] - Chriss Hopkins MD [STAFF PHYSICIAN] - What to do if you have Problems For any increased pain, shortness of breath, bleeding, nausea or vomiting, chest pain, or any unexpected problems, contact your Primary Care Provider. Call [facility] ([phone]) or report to the closest Emergency Room. Call 911 if necessary. 03/29/181928 <Electronically signed by Jenny Jordan MD> Date Jenny Jordan MD Cosigner Signature (If Indicated): Date CC: Thiago Faustin MD CBC W/DIFF, AUTOMATED Collected: 03/29/2018 Status: F Source: [place] 6:35 PM [facility] REPOSITORY TYPE CODE TESTS RESULT OUT OF RANGE REFERENCE UNITS LAB L100.1000 4.4-11.0 K/mm3 Normal WBC 6.4 LAB L100.1200 4.6-6.2 M/mm3 Normal RBC 4.92 LAB L100.1300 13.0-16.5 g/dl Normal HGB 13.7 LAB L100.1400 40-54 % Normal HCT 41.4 LAB L100.1500 80-94 fL Normal MCV 84.1 LAB L100.1600 27.0-32.0 pg Normal MCH 27.8 LAB L100.1700 32-36 g/gl Normal MCHC 33.1 LAB L100.1810 11.6-14.6 % Normal RDW CV 12.8 LAB L100.1820 35.1-43.9 fl Normal RDW SD 38.9 LAB L100.1900 150-450 K/mm3 Normal PLT 160 LAB L100.2000 6.2-12.0 fl Normal MPV 11.6 LAB L100.2100 47-70 % High NEUT% 75.2 LAB L100.2200 19-41 % Low LY% 17.0 LAB L100.2300 0-10 % Normal MONO% 6.4 LAB L100.2400 0-5 % Normal EO% 1.1 LAB L100.2500 0-1 % Normal BASO% 0.3 LAB L100.2550 0.0-0.9 % Normal IM GRAN % 0.000 Result Comment: IG% - Immature Granulocytes (promyelocytes, myelocytes and metamyelocytes) > 1% indicates that a LEFT SHIFT is Present. LAB L100.2620 2.0-7.7 X10 3/uL Normal Absolute Neut 4.8 LAB L100.2720 0.83-4.51 X10 3/ul Normal Absolute Lymph 1.09 Performed By: #### L100.0100 #### [facility] [address] [place], [address] BASIC METABOLIC Collected: 03/29/2018 Status: F Source: [place] PROFILE (BMP) 6:35 PM [facility] REPOSITORY TYPE CODE TESTS RESULT OUT OF RANGE REFERENCE UNITS LAB L501.0100 74-106 mg/dL Normal GLU 85 Result Comment: Please note revised GLUCOSE reference range effective 2017. LAB L501.1000 7-18 mg/dL High BUN 19 LAB L501.1100 0.70-1.30 mg/dL Normal CREAT,SERUM 1.09 Result Comment: The validity of the calculated GFR AND GFRAA in patients over 70 years has not been determined. Clinical correlation is essential. LAB L501.1110 >60 mL/min Normal EST GFR 80 Result Comment: Non- GFR Calc LAB L501.1115 >60 mL/min Normal EST GFR - AA 97 Result Comment: GFR Calc LAB L501.1255 ml/min Normal Estimated CRCL 97.87 LAB L501.1300 10-20 RATIO Normal BUN/CRE 17.4 LAB L501.2200 8.5-10 mg/dL Low .1 CA 8.4 LAB L501.5300 136-14 mmol/L Normal 5 NA 142 LAB L501.5600 3.5-5. mmol/L Normal 1 K 4.4 LAB L501.5900 98-107 mmol/L High CL 110 LAB L501.6100 21.0-3 mmol/L Normal 2.0 CO2 27.0 LAB L501.6200 5-15 Normal GAP 5 Performed By: #### L500.2500, L501.4010, L501.5200, L501.9520 #### [facility] [address] [place], [address] TROPONIN-I Collected: 03/29/2018 Status: F Source: [place] 6:35 PM [facility] REPOSITORY TYPE CODE TESTS RESULT OUT OF RANGE REFERENCE UNITS LAB L501.4010 <0.045 ng/mL Normal < 0.015 TROPONIN-I Result Comment: TROPONIN-I EXPECTED VALUES <0.045 Negative 0.045 - 0.590 Consistent with Cardiac Damage > OR = 0.600 Critical Value Not every elevated troponin is indicative of MD. These values should be used with clinical judgement in examining the patient's clinical picture for diagnosis. To establish a diagnosis of MD versus myocardial injury, there must be a demonstrated rise and/or fall in the troponin values, in addition to ischemic symptoms, EKG changes, new regional wall motion abnormality, and/or angiographical evidence. PLEASE NOTE: REFERENCE RANGES EDITED 17 Performed By: #### L500.2500, L501.4010, L501.5200, L501.9520 #### [facility] [address] [facility] [place], [address] MAGNESIUM Collected: 03/29/2018 Status: F Source: [place] 6:35 PM [facility] REPOSITORY TYPE CODE TESTS RESULT OUT OF RANGE REFERENCE UNITS LAB L501.5200 1.6-2.6 mg/dL Normal MG 1.8 Performed By: #### L500.2500, L501.4010, L501.5200, L501.9520 #### [facility] [address] [facility] [place], [address] THYROID STIM HORMONE Collected: 03/29/2018 Status: F Source: [place] (TSH) 6:35 PM [facility] REPOSITORY TYPE CODE TESTS RESULT OUT OF RANGE REFERENCE UNITS LAB L501.9520 0.358-3.74 uIU/mL Normal TSH 1.86 Performed By: #### L500.2500, L501.4010, L501.5200, L501.9520 #### [facility] [address] [facility] [place], [address] CHEST 1 VIEW Observed: 03/29/2018 Status: F Source: [place] (PORTABLE) 6:24 PM [facility] REPOSITORY [facility] Imaging Services [address] [place] [address] Chest 1 View (Portable) MR#: [id number] Acct: [id number] Name: MARISOL NEVAREZ Rep #: [id number] : 1980 M 37 From: Matthew Diaz DO PCP: Thiago Faustin MD Status: PRE ER Study: Chest 1 View (Portable) Date of Exam: 03/29/18 Exam# [id number] Ordering Dr: Jenny Jordan MD STUDY: X-RAY CHEST REASON FOR EXAM: Male, 37 years old. Palpitations TECHNIQUE: Single AP portable view of the chest. COMPARISON: None. FINDINGS: The lungs are clear and expanded. There is no demonstrated pleural abnormality. Normal size heart. Normal mediastinum and raegan. Normal visualized pulmonary arteries. Normal visualized aortic arch and descending thoracic aorta. Normal visualized thoracic spine. Normal visualized ribs, clavicles, and shoulders. There is no demonstrated abnormality of the visualized soft tissue structures of the upper abdomen. RAD/Chest 1 View (Portable) IMPRESSION: Normal x-ray examination of the chest. Electronically Signed: Matthew Diaz DO at 18:37 EDT Tel , Service support , CC: Jenny Jordan MD; Thiago Faustin MD Card Fixer: Signed PROGRESS Observed: 03/26/2018 Status: COMPLETED Source: [place] 1:56 PM [facility] REPOSITORY [facility] ID: [id number] Author: Miguelina Hall) Podlogar Service: (none) Author Type: Nurse Practitioner Type: Progress Notes Filed: 03/26/2018 2:12 PM Note Text: 03/26/2018 Patient presents with: Physical: wellness exam for work SUBJECTIVE: This is a 37 year old that is here today for Above Complaints. No cocnerns today No past medical history on file. ALLERGIES Patient has no known allergies. MEDICATIONS No current outpatient prescriptions on file. No current facility-administered medications for this visit. Medications and allergies reviewed by this provider. SOCIAL HISTORY Social History Marital status: Spouse name: Years of education: Number of children: Social History Main Topics Smoking status: Never Smoker Smokeless tobacco: Never Used Alcohol use: Yes 1.5 oz/week Cans of Beer (12oz): 1 per week Comment: on weekends Drug use: No Sexual activity: Yes Other Topics Concern Service No Sleep Concern No Special Diet Yes Exercise Yes Self-Exams No REVIEW OF SYSTEMS GENERAL: No weight loss, malaise or fevers HEENT: Negative for frequent or significant headaches, No changes in hearing or vision, no nose bleeds or other nasal problems NECK: Negative for lumps, goiter, pain and significant neck swelling RESPIRATORY: Negative for cough, hemoptysis, wheezing, COPD, dyspnea or shortness of breath CARDIOVASCULAR: Negative for chest pain, leg swelling, hypertension, CHF or palpitations GI: No nausea, vomiting, or diarrhea : No history of dysuria, frequency or incontinence MUSCULOSKELETAL: Negative for joint pain or swelling, back pain or muscle pain SKIN: Negative for lesions, rash, and itching HEMATOLOGY/LYMPHOLOGY: Negative for prolonged bleeding, bruising easily or swollen nodes ENDOCRINE: Negative for cold or heat intolerance, polyuria, polydipsia and goiter NEURO: No history of headaches, syncope, paralysis, seizures or tremors All other reviewed and negative other than HPI. OBJECTIVE: BP 110/60 (BP Site: Left Arm, BP Position: Sitting, BP Cuff Size: Regular Adult) Pulse 64 Resp 18 Ht 180.3 cm (5' 11) Wt 84.4 kg (186 lb 0.6 oz) BMI 25.95 kg/m? . Vital signs reviewed by this provider. APPEARANCE Well appearing, alert, in no acute distress, well-hydrated, well nourished. EYES PERRLA, conjunctiva and sclera normal. EARS External ears normal, canals clear Oropharynx: Lips, mucosa, and tongue normal, teeth and gums normal, oropharynx normal NECK Supple, no adenopathy; thyroid symmetric, normal size, no bruits HEART RRR with normal S1 and S2, no murmurs, no gallops, no JVD appreciated LUNG clear to auscultation. No wheezes, rhonchi, or rales ABDOMEN bowel sounds normoactive, no bruits, soft, non-tender, non-distended BACK: Normal exam EXTREMITIES Extremities normal, No deformities, No skin discoloration, No edema and Normal pulses bilaterally. NEURO Awake, alert and oriented x 3, Cranial nerves II-XII grossly intact, Reflexes symmetrical, Normal gait and No involuntary motions. SKIN Skin color, texture, turgor normal, no suspicious rashes or lesions ASSESSMENT/PLAN: 1. Well adult exam - ICD9: V70.0, ICD10: Z00.00 - Recommended regular aerobic exercise. - recommended influenza today- declines - Check CBC with diff, CMP and fasting lipid panel - Follow up for annual exam in one year. - COMP METABOLIC PANEL - LIPID PANEL BASIC - CBC + DIFF Miguelina Gardiner APRN.CNP Prescription instructions reviewed with patient as applicable. Patient advised if symptoms do not improve or if symptoms worsen sooner, to contact their primary care physician. Potential red flag symptoms discussed with the patient. Reviewed appropriate action plan to take if red flag symptoms occur. Patient agreeable to treatment plan. CNOV Observed: 03/26/2018 Status: COMPLETED Source: [place] 1:40 PM [facility] REPOSITORY Office Visit (FAMPWS) MARISOL NEVAREZ ([id number]) 1980 M [facility] Date Time Provider Department 03/26/18 1:40 PM [facility]EL[facility] During your visit today, we recorded the following information about you: Pulse Respiration Blood pressure Weight 64/minute 18/minute 110/60 84.4 kg Height 1.803 m Miguelina Gardiner APRN.CNP 03/26/2018 2:12 PM Signed 03/26/2018 Patient presents with: Physical: wellness exam for work SUBJECTIVE: This is a 37 year old that is here today for Above Complaints. No cocnerns today No past medical history on file. ALLERGIES Patient has no known allergies. MEDICATIONS No current outpatient prescriptions on file. No current facility-administered medications for this visit. Medications and allergies reviewed by this provider. SOCIAL HISTORY Social History Marital status: Spouse name: Years of education: Number of children: Social History Main Topics Smoking status: Never Smoker Smokeless tobacco: Never Used Alcohol use: Yes 1.5 oz/week Cans of Beer (12oz): 1 per week Comment: on weekends Drug use: No Sexual activity: Yes Other Topics Concern Service No Sleep Concern No Special Diet Yes Exercise Yes Self-Exams No REVIEW OF SYSTEMS GENERAL: No weight loss, malaise or fevers HEENT: Negative for frequent or significant headaches, No changes in hearing or vision, no nose bleeds or other nasal problems NECK: Negative for lumps, goiter, pain and significant neck swelling RESPIRATORY: Negative for cough, hemoptysis, wheezing, COPD, dyspnea or shortness of breath CARDIOVASCULAR: Negative for chest pain, leg swelling, hypertension, CHF or palpitations GI: No nausea, vomiting, or diarrhea : No history of dysuria, frequency or incontinence MUSCULOSKELETAL: Negative for joint pain or swelling, back pain or muscle pain SKIN: Negative for lesions, rash, and itching HEMATOLOGY/LYMPHOLOGY: Negative for prolonged bleeding, bruising easily or swollen nodes ENDOCRINE: Negative for cold or heat intolerance, polyuria, polydipsia and goiter NEURO: No history of headaches, syncope, paralysis, seizures or tremors All other reviewed and negative other than HPI. OBJECTIVE: BP 110/60 (BP Site: Left Arm, BP Position: Sitting, BP Cuff Size: Regular Adult) Pulse 64 Resp 18 Ht 180.3 cm (5' 11) Wt 84.4 kg (186 lb 0.6 oz) BMI 25.95 kg/m? . Vital signs reviewed by this provider. APPEARANCE Well appearing, alert, in no acute distress, well- hydrated, well nourished. EYES PERRLA, conjunctiva and sclera normal. EARS External ears normal, canals clear Oropharynx: Lips, mucosa, and tongue normal, teeth and gums normal, oropharynx normal NECK Supple, no adenopathy; thyroid symmetric, normal size, no bruits HEART RRR with normal S1 and S2, no murmurs, no gallops, no JVD appreciated LUNG clear to auscultation. No wheezes, rhonchi, or rales ABDOMEN bowel sounds normoactive, no bruits, soft, non-tender, non-distended BACK: Normal exam EXTREMITIES Extremities normal, No deformities, No skin discoloration, No edema and Normal pulses bilaterally. NEURO Awake, alert and oriented x 3, Cranial nerves II-XII grossly intact, Reflexes symmetrical, Normal gait and No involuntary motions. SKIN Skin color, texture, turgor normal, no suspicious rashes or lesions ASSESSMENT/PLAN: 1. Well adult exam - ICD9: V70.0, ICD10: Z00.00 - Recommended regular aerobic exercise. - recommended influenza today- declines - Check CBC with diff, CMP and fasting lipid panel - Follow up for annual exam in one year. - COMP METABOLIC PANEL - LIPID PANEL BASIC - CBC + DIFF Miguelina Gardiner APRN.HARVEY Prescription instructions reviewed with patient as applicable. Patient advised if symptoms do not improve or if symptoms worsen sooner, to contact their primary care physician. Potential red flag symptoms discussed with the patient. Reviewed appropriate action plan to take if red flag symptoms occur. Patient agreeable to treatment plan. Referring Provider: SELF [200] Allergies As of Date: 03/26/2018 (No Known Allergies) Date Reviewed: 03/26/2018 Reviewed by: Miguelina (Harvey) Podlogar - Fully Assessed Reason for Visit: Physical [83] Cmt: wellness exam for work Primary Visit Diagnosis:Well adult exam [Z00.00] Order(s):COMP METABOLIC PANEL [SQCMP] Order #: [id number] FUTURE LIPID PANEL BASIC [SQLIPB] Order #: [id number] FUTURE CBC + DIFF [SQCBCDIF] Order #: [id number] FUTURE Problem List As Of Date: 03/26/2018 (None) Follow-up and Disposition History Recorded Encounter Status:Closed by MIGUELINA GARDINER CNP on 03/26/18 ALLERGIES ALLERGIES DATE TYPE / CODE NAME / CODE REACTION SEVERITY SOURCE 05/01/2018 Drug No Known Unknown [facility] Allergy/416 Allergies/L03042 Hospital 981590(SNOM 0388(RXNORM) Repository ED CT) Drug NO KNOWN [facility] Class/[address] [facility] 1003(SNOMED Repository CT) ENCOUNTERS ENCOUNTERS ADMIT/DISCHARGE ACCOUNT ADMITTING ENCOUNTER LOCATION SOURCE NUMBER CLASS 05/01/2018/05/01/20 [id number] Ambulatory BMSBuilding:B [place] [address] [facility] Repository 04/26/2018 [id number] Ambulatory BMSBuilding:[facility] [place] MS.[facility] Repository 04/26/2018 [id number] Ambulatory [facility] ing:[facility] Repository 04/18/2018/04/18/20 [id number] Emergency [address] ing:ED Repository 04/17/2018/04/17/20 [id number] Ambulatory BMSBuilding:B [place] [address] [facility] Repository 04/16/2018 [id number] Ambulatory BMSBuilding:Eduin Mena MS[facility] Repository 04/13/2018/04/15/20 [id number] Ambulatory [address] Repository 04/13/2018/04/13/20 [id number] Ambulatory [address] Repository 03/29/2018/03/29/20 [id number] Emergency [place] [address] [facility] ing:ED Repository 03/26/2018/03/27/20 [id number] Ambulatory [address] Repository PAYERS PAYERS ENCOUNTER GUARANTOR PAYER SUBSCRIBER SOURCE 05/01/2018 MARISOL DA Primary MARISOL DA [place] CORONEL [id number] Insurance:ANTHEMPolic CORONEL NETODOB: Community SAEED y [place]: [id number] [id number] Repository [address]Grd: (675) debra Date:1337-36-50BS [phone] () [address], [place] [address]NO: 05/01/2018 Secondary NOT GIVENUNK [place] Insurance:SELF PAY [facility] Number: Effective Repository Date:2018-05-01 04/26/2018 MARISOL DA Primary MARISOL DA [place] CORONEL [id number] Insurance:ANTHEMPolic CORONEL NETODOB: Community SAEED y Number: [id number] [id number] Repository [address]Lpv: (336) debra Date:4050-78-66WR [phone] () [address], [place] [address]CJ: 04/26/2018 Secondary NOT GIVENUNK [place] Insurance:SELF PAY [facility] Number: Effective Repository Date:2018-04-26 04/26/2018 MARISOL DA Primary MARISOL DA [place] CORONEL [id number] Insurance:ANTHEMPolic CORONEL NETODOB: Community SAEED y [place]: [id number] [id number] Repository [address]Cta: (065) debra Date:9714-09-13VA [phone] () [address], [place] [address]CF: 04/26/2018 Secondary NOT GIVENUNK [place] Insurance:SELF PAY [facility] Number: Effective Repository Date:2018-04-17 04/18/2018 MARISOL Primary MRAISOL DA [place] CORONEL [id number] Insurance:ANTHEMPolic CORONEL NETODOB: Community SAEED y Number: [id number], [place] [id number] Repository [address]Pmq: (035) debra Date:[id number] -3812 () [address] [place] [address]TS: 04/18/2018 Secondary NOT GIVENUNK [place] Insurance:SELF PAY [facility]: Effective Repository Date:2018-04-18 04/17/2018 MARISOL [facility] MARISOL DA Trina CORONEL [id number] Insurance:ANTHEMPolic CORONEL NETODOB: Community SAEED y Number: [id number], [place] [id number] Repository [address]Prm: (796) debra Date:8576-37-16RD [phone] () [address] [place] [address]AW: 04/17/2018 Secondary NOT GIVENUNK [place] Insurance:SELF PAY [facility] Number: Effective Repository Date:2018-04-11 04/16/2018 MARISOL [facility] MARISOL DA [place] CORONEL [id number] Insurance:ANTHEMPolic CORONEL NETODOB: Community SAEED y Number: [id number], [place] [id number] Repository [address]Otq: (527) debra Date:3219-89-38PY [phone] () [address], [place] [address]VY: 04/16/2018 Secondary NOT GIVENUNK Tr[place] Insurance:SELF PAY [facility] Number: Effective Repository Date:2018-04-16 03/29/2018 MARISOL [facility] MARISOL DA [place] CORONEL [id number] Insurance:ANTHEMPolic CORONEL NETODOB: Community SAEED y Number: [id number], [place] [id number] Repository [address]Jgv: (643) debra Date:1237-11-23OH [phone] () [address], [place] [address]JI: 03/29/2018 Secondary NOT GIVENUNK [place] Insurance:SELF PAY [facility] Number: Effective Repository Date:2018-03-29
== END ==
PROVIDERS: Family Provider Family Medicine; PCP Family Medicine; Referring Provider Internal Medicine Cardiovascular Disease; Visit Provider Internal Medicine Cardiovascular Disease
DX: I49.3 Ventricular premature depolarization (principal)
CPT/HCPCS: 93225; 93226; 93306

== ENCOUNTER → 2019-04-22 13:53 | Outpatient (CLI) | payer BC, SELFPAY ==
[2019-04-17 11:57] VITALS: BMI 26.3
== END ==
PROVIDERS: Family Provider Family Medicine; PCP Family Medicine; Referring Provider Internal Medicine Cardiovascular Disease; Visit Provider Internal Medicine Cardiovascular Disease
DX: I49.3 Ventricular premature depolarization (principal)
CPT/HCPCS: 93225; 93226

== ENCOUNTER 2019-08-09 16:05 | Emergency (ER) | payer BC, SELFPAY ==
[2019-04-17 11:57] VITALS: BMI 26.3
[2019-08-09 16:07] VITALS: BP 138/97; PULSE 77; RESP 17; TEMP 36.9; O2SAT 99; BMI 26.9
--- NOTE | 2019-08-09 16:32 | ED.VISSUMM ---
- ER Visit Summary Date of Service: 08/09/19 Chief Complaint: Right facial weakness History of Present Illness: The patient is a 39 M who presents with right facial weakness that began today. Patient states that yesterday he noted some numbness around his right ear that went down towards his throat. Patient states that today when he woke up he noted some weakness to the right side of his face. Patient states nothing makes it better or worse. 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 Patient denies any paresthesias or weakness of his extremities. Physical Examination: Vital signs are stable. Patient is afebrile. Patient is in no acute distress. Cranial nerves II through XII are intact except for weakness of the right facial nerve. There is unequal elevation of the eyebrows. There is weakness of the right eye muscles and with smiling on the right side. Strength is otherwise 5/5 in the upper and lower extremities. There are no sensory deficits noted. Tongue is midline. Uvula is midline and elevates equally. Neck is supple. Trachea is midline. There is no JVD. Heart was regular rate and rhythm. Lungs are clear and equal bilaterally. Abdomen is soft. Bowel sounds are normal. There is no tenderness. Extremities are intact. There is no calf tenderness or edema. Emergency Department Course and Treatment: Patient was advised that this is a Lamas's palsy and not a stroke. Patient was given a prescription for prednisone. Patient was instructed to follow-up with his primary care physician in 5 to 7 days. Patient was instructed to use artificial tears. Patient was instructed that he may need to tape his right eyelid shut to prevent drying while he is sleeping. Patient understood and was agreeable with the plan. All questions were answered. Disposition: Discharge home Impression: Lamas's palsy This note was generated with [employer] dictation software. It may contain incorrect words, spelling, and punctuation that were not noted in review of the chart prior to signing ED Disposition - Plan for ED Patient: Disposition: Home or Assisted Living Diagnosis: Lamas's palsy Instructions: Lamas's Palsy Prescriptions: Prednisone [Deltasone] 60 mg PO DAILY #15 tab Prescription Printed Referrals: Thiago Faustin MD [Primary Care Provider] - 5-7 Days
[2019-08-09 16:52] VITALS: BP 116/75; PULSE 67; RESP 15; O2SAT 97
[2019-08-09 17:21] VITALS: BMI 26.9
== END 2019-08-09 17:23 | disposition home or self-care (01) ==
LOC: ED 17:17
PROVIDERS: Emergency Provider Emergency Medicine; PCP Family Medicine
DX: G51.0 Bell's palsy (principal)
CPT/HCPCS: 99282